=== PATIENT | female | born 1950 ===

== ENCOUNTER 2022-04-30 06:19 | Day surgery (SDC) | payer OTHER ==
[~2022-04-30 06:19] MED LIST: ATORVASTATIN CA20 MG PO; RESTORIL15 M1 PO; TIROSINT50 MCG PO
== END 2022-04-30 11:30 | disposition home or self-care (01) ==
LOC: CIR.AMB 06:19
PROVIDERS: ATTEND Surgery Surgery of the Hand
DX: M19.041 Primary osteoarthritis, right hand (principal); Z20.822 Contact with and (suspected) exposure to COVID-19; E03.9 Hypothyroidism, unspecified